=== PATIENT | female | born 1995 | race African-American/Black ===

== ENCOUNTER 2021-09-07 10:18 | Inpatient (IN) | payer BC, OTHER, SELFPAY ==
[2021-09-07] MEDS ORDERED: Magnevist 469MG/ML 20 ML VIAL ONE (10:25)
[2021-09-07] MEDS ORDERED: Ketorolac Tromethamine 30 MG/ML VIAL ONE (10:33)
[2021-09-07] MEDS ORDERED: Metoclopramide HCl 10 MG/2 ML VIAL ONE (10:33)
[2021-09-07 11:07] LABS: #Basophils 0.1 thou/uL (0.0-0.2); #Monocytes 0.3 thou/uL (0.11-0.59); #Neutrophils 4.5 thou/uL (1.40-6.50); %Eosinophils 0.3 % (0.0-10.0); %Lymphocytes 16.6 % (21.0-51.0); %Neutrophils 77.1 % (42.0-75.0); Mean Corpuscular HGB CONC 31.6 g/dL (32.0-36.0); Mean Corpuscular Hemoglobin 25.8 pg (27.0-31.0); Mean Corpuscular Volume 81.7 fL (78.0-98.0); Mean Platelet Volume 7.7 fL (7.4-10.4); Platelet Count 378 thou/uL (130-400); RBC Distribution Width 15.1 % (11.5-14.5); Red Blood Cell (RBC) Count 4.25 mill/uL (4.20-5.40); White Blood Cell (WBC) Count 5.9 thou/uL (4.8-10.8)
[2021-09-07 11:16] LABS: BHCG - Serum Negative (NEGATIVE); Pregs Control Background? CLEAR/WHITE (CLR/WHITE); Pregs Control Bar Appear? YES (CONTROL BAR)
[2021-09-07 11:30] LABS: ALT (SGPT) 8 U/L (8-55); AST (SGOT) 16 U/L (5-34); Albumin 4.1 g/dL (3.5-5.0); Alkaline Phosphatase 69 U/L (40-110); Anion Gap 13 mmol/L (10-20); BUN (Urea Nitrogen) 8 mg/dL (7.0-18.7); Bilirubin, Total 0.7 mg/dL (0.2-1.2); Calc. Creatinine Clearance 0 mL/min (70-130); Calcium 9.6 mg/dL (7.8-10.44); Carbon Dioxide 26 mmol/L (22-29); Chloride 104 mmol/L (98-107); Globulin 3.6 g/dL (2.4-3.5); Glucose 104 mg/dL (70-105); Potassium 3.7 mmol/L (3.5-5.1); Protein, Total 7.7 g/dL (6.0-8.3); Sodium 139 mmol/L (136-145)
[2021-09-07] MEDS ORDERED: Morphine 4 MG/ML VIAL ONE (12:00)
[2021-09-07] MEDS ORDERED: traMADol HCl 50 MG TAB PO PRN (14:32)
[2021-09-07 15:15] LABS: Prothrombin Time 13.1 sec (12.0-14.7)
[2021-09-07] MEDS: HYDROcodone/Acetaminophen 7.5/325 mg Tablet PO PRN ×2 (16:12→22:15)
[2021-09-07] MEDS: Sodium Chloride 0.9% 1,000 ML IV SCH (17:18)
[2021-09-07] MEDS: Ondansetron PF 4 MG/2 ML Vial IVP PRN (17:18)
[2021-09-07 18:02] VITALS: BMI 29.0
[2021-09-07] MEDS: Acetaminophen/Codeine 30-300mg Tablet PO PRN (18:03)
[2021-09-07] MEDS ORDERED: FLU VACC QS2021-22(6MOS UP)/PF 60 MCG/0.5 ML SYRINGE IM ONE (18:45)
[2021-09-07] MEDS: Acetaminophen 325 MG TAB PO PRN (21:23)
[2021-09-07 22:16] LABS: Bacteria/HPF None Seen HPF (None Seen); Bilirubin Negative (Negative); Blood, Urine Negative (Negative); Clarity Clear (Clear); Glucose, Urine (Dipstick) Normal (Negative); Ketone, Urine Negative (Negative); Leukocyte Negative Leu/uL (Negative); Mucous/LPF 2+ LPF (<2+); Nitrite Negative (Negative); Protein, Urine (Dipstick) 50 mg/dL (Neg-Trace); RBC/HPF 0-3 HPF (0-3); Specific Gravity, Urine 1.043 (1.002-1.036); Squamous Epithelial 0-3 HPF (0-3); WBC/HPF 0-3 HPF (0-3)
[2021-09-07 22:18] LABS: Urine Culture Reflex No No
[2021-09-07 22:50] LABS: SARS-CoV-2 NAA Rapid Test Not Detected (NotDetected)
[2021-09-08] MEDS: Acetaminophen/Codeine 30-300mg Tablet PO PRN (02:07)
[2021-09-08] MEDS: Sodium Chloride 0.9% 1,000 ML IV SCH ×3 (06:42→22:01)
[2021-09-08] MEDS ORDERED: Fentanyl 100 MCG/2 ML VIAL ONE ×2 (07:02)
[2021-09-08] MEDS: HYDROcodone/Acetaminophen 7.5/325 mg Tablet PO PRN (07:22)
[2021-09-08] MEDS ORDERED: Thrombin 5000 UNITS/5 ML VIAL ONE (07:27)
[2021-09-08] MEDS ORDERED: Lidocaine 0.5%/Epinephrine 1:200,000 50 ml Vial ONE (07:27)
[2021-09-08] MEDS ORDERED: Rocuronium Bromide 10 MG/ML (10ML VIAL) ONE (09:01)
[2021-09-08] MEDS ORDERED: Dexamethasone 20 MG/5 ML VIAL ONE (09:01)
[2021-09-08] MEDS ORDERED: Ondansetron PF 4 MG/2 ML Vial ONE (09:01)
[2021-09-08] MEDS ORDERED: PROPOFOL 200 MG/20 ML VIAL ONE (09:01)
[2021-09-08] MEDS ORDERED: Lidocaine 1% PF 5 ML VIAL ONE (09:01)
[2021-09-08] MEDS ORDERED: Glycopyrrolate 0.2 MG/ML 5 ML SYRINGE ONE (09:01)
[2021-09-08] MEDS ORDERED: SUGAMMADEX SODIUM 200 MG/2 ML VIAL ONE (10:16)
[2021-09-08 11:42] LABS: Color Of CSF Supernatant COLORLESS (Colorless); Tube # CSF; Unspun CSF Color COLORLESS (Colorless)
[2021-09-08 11:54] LABS: CSF, Glucose 72 mg/dl (40-70); CSF, Protein Less than 10 mg/dL (15-40)
[2021-09-08 12:30] LABS: CSF Source CSF; Clarity Clear (Clear); Tube # *STERILE CONTAINER
[2021-09-08] MEDS: ceFAZolin Sodium/D5W 2 GM in Premix Bag 1 BAG IVPB SCH ×2 (13:21→21:57)
[2021-09-08] MEDS: hydrALAZINE 20 MG/ML VIAL SLOW IVP PRN (13:29)
[2021-09-08] MEDS ORDERED: CEFAZOLIN 2 GM in Sodium Chloride 0.9% 100 ML IVPB SCH (14:00)
[2021-09-09] MEDS: ceFAZolin Sodium/D5W 2 GM in Premix Bag 1 BAG IVPB SCH ×2 (05:33→14:36)
[2021-09-09] MEDS: Sodium Chloride 0.9% 1,000 ML IV SCH (13:05)
[2021-09-09 17:30] LABS: EliA RAS New Method **** NEW METHOD ****; Rheumatoid Factor IgA Antibody 3.1 IU/mL (<14 Negative); Rheumatoid Factor IgM Antibody 1.7 IU/mL (<3.5 Negative)
[2021-09-09] MEDS: CEFAZOLIN 2 GM, Admixture Fee 1 EACH in Sodium Chloride 0.9% 100 ML IVPB SCH (21:12)
[2021-09-09] MEDS ORDERED: Cefepime 2 GM in Sodium Chloride 0.9% 100 ML IVPB SCH (22:00)
[2021-09-10] MEDS: Sodium Chloride 0.9% 1,000 ML IV SCH ×3 (00:22→11:11)
[2021-09-10] MEDS: CEFAZOLIN 2 GM, Admixture Fee 1 EACH in Sodium Chloride 0.9% 100 ML IVPB SCH ×3 (05:23→22:23)
[2021-09-11] MEDS: Sodium Chloride 0.9% 1,000 ML IV SCH ×2 (00:16→22:28)
[2021-09-11] MEDS: CEFAZOLIN 2 GM, Admixture Fee 1 EACH in Sodium Chloride 0.9% 100 ML IVPB SCH ×2 (05:20→14:14)
[2021-09-11] MEDS ORDERED: Bupivacaine 0.25% HCL 30 ML VIAL ONE (11:34)
[2021-09-11] MEDS ORDERED: Lidocaine 1% w/Epinephrine 1:100K 20 ML VIAL ONE (11:34)
[2021-09-11] MEDS ORDERED: Fentanyl 100 MCG/2 ML VIAL ONE ×3 (13:12→15:19)
[2021-09-11] MEDS ORDERED: PROPOFOL 200 MG/20 ML VIAL ONE (13:26)
[2021-09-11] MEDS ORDERED: Rocuronium Bromide 10 MG/ML (10ML VIAL) ONE (13:26)
[2021-09-11] MEDS ORDERED: Dexamethasone 20 MG/5 ML VIAL ONE (13:26)
[2021-09-11] MEDS ORDERED: Lidocaine 1% PF 5 ML VIAL ONE (13:26)
[2021-09-11] MEDS ORDERED: Ondansetron PF 4 MG/2 ML Vial ONE (13:26)
[2021-09-11] MEDS ORDERED: Esmolol 100 MG/10 ML VIAL ONE (13:26)
[2021-09-11] MEDS ORDERED: Glycopyrrolate 0.2 MG/ML 5 ML SYRINGE ONE (13:26)
[2021-09-11] MEDS ORDERED: tiZANidine HCl 4 MG TAB PO PRN (15:06)
[2021-09-11] MEDS ORDERED: Promethazine HCl 25 MG/ML VIAL IM PRN (15:08)
[2021-09-11] MEDS ORDERED: Ondansetron HCl/PF 4 MG/2 ML Vial IVP PRN (15:08)
[2021-09-11] MEDS ORDERED: Promethazine HCl 25 MG/ML VIAL IVPB PRN (15:08)
[2021-09-11] MEDS ORDERED: HYDROmorphone 2 MG/ML VIAL SLOW IVP PRN (15:08)
[2021-09-11] MEDS: ceFAZolin Sodium/D5W 2 GM in Premix Bag 1 BAG IVPB SCH (22:30)
[2021-09-11] MEDS: hydrALAZINE 20 MG/ML VIAL SLOW IVP PRN (22:39)
[2021-09-12] MEDS: Sodium Chloride 0.9% 1,000 ML IV SCH ×3 (04:50→20:34)
[2021-09-12] MEDS: ceFAZolin Sodium/D5W 2 GM in Premix Bag 1 BAG IVPB SCH (05:50)
[2021-09-12] MEDS: Ondansetron PF 4 MG/2 ML Vial IVP PRN (06:19)
[2021-09-12] MEDS: Promethazine HCl 12.5 MG in Sodium Chloride 0.9% 50 ML IVPB PRN (09:16)
[2021-09-12 14:14] LABS: Fungus Stain Final report (.)
[2021-09-12] MEDS: Acetaminophen 325 MG TAB PO PRN (18:03)
[2021-09-13] MEDS: Ondansetron PF 4 MG/2 ML Vial IVP PRN ×2 (01:22→15:28)
[2021-09-13] MEDS: Sodium Chloride 0.9% 1,000 ML IV SCH ×3 (04:36→15:33)
[2021-09-13] MEDS: Promethazine HCl 12.5 MG in Sodium Chloride 0.9% 50 ML IVPB PRN (04:52)
[2021-09-13] MEDS ORDERED: Acetaminophen/Codeine 30-300mg Tablet PO PRN (14:48)
[2021-09-13] MEDS ORDERED: traMADol HCl 50 MG TAB PO PRN (14:48)
[2021-09-14] MEDS: Ondansetron PF 4 MG/2 ML Vial IVP PRN ×2 (00:54→07:11)
[2021-09-14] MEDS: Acetaminophen 325 MG TAB PO PRN (04:58)
[2021-09-14] MEDS: hydrALAZINE 20 MG/ML VIAL SLOW IVP PRN ×3 (08:16→20:12)
[2021-09-14] MEDS: Sodium Chloride 0.9% 1,000 ML IV SCH ×2 (08:17→18:46)
[2021-09-14] MEDS ORDERED: Dexamethasone 4 mg/ml Vial SLOW IVP SCH (08:45)
[2021-09-14 12:12] LABS: Anion Gap 12 mmol/L (10-20); BUN (Urea Nitrogen) 10 mg/dL (7.0-18.7); Calc. Creatinine Clearance 169 mL/min (70-130); Carbon Dioxide 24 mmol/L (22-29); Chloride 103 mmol/L (98-107); Glucose 89 mg/dL (70-105); Potassium 3.4 mmol/L (3.5-5.1); Sodium 136 mmol/L (136-145)
[2021-09-14] MEDS: Dexamethasone 4 MG TAB PO SCH ×2 (16:11→21:34)
[2021-09-15] MEDS: Dexamethasone 4 MG TAB PO SCH ×2 (04:11→09:28)
[2021-09-15] MEDS: Sodium Chloride 0.9% 1,000 ML IV SCH ×3 (09:30→19:49)
[2021-09-15] MEDS: Dexamethasone 1 MG TAB PO SCH ×2 (16:30→21:26)
[2021-09-15 16:41] LABS: SARS-CoV-2 PCR by NAA Not Detected (NotDetected)
[2021-09-16] MEDS: Dexamethasone 1 MG TAB PO SCH ×4 (03:37→21:29)
[2021-09-16] MEDS: Sodium Chloride 0.9% 1,000 ML IV SCH ×2 (05:23→21:20)
[2021-09-17] MEDS: Dexamethasone 1 MG TAB PO SCH ×2 (03:39→08:50)
[2021-09-17] MEDS: Acetaminophen 325 MG TAB PO PRN (06:09)
[2021-09-17] MEDS: Sodium Chloride 0.9% 1,000 ML IV SCH (08:48)
[2021-09-17 12:04] VITALS: BP 120/74; TEMP 97.9
[2021-09-17] MEDS ORDERED: Dexamethasone 1 MG TAB PO SCH (16:00)
== END 2021-09-17 14:30 | disposition home or self-care (01) | DRG 26 ==
LOC: ERS 10:18 → SURG B 14:19 → CCU 09-08 11:36 → SJJU 09-11 17:21
PROVIDERS: ADMIT Surgery; ATTEND Surgery
PROC: 009600Z Drainage of Cerebral Ventricle with Drainage Device, Open Approach (ICD-10-PCS; principal; 2021-09-08)
PROC: 00163J6 Bypass Cerebral Ventricle to Peritoneal Cavity with Synthetic Substitute, Percutaneous Approach (ICD-10-PCS; 2021-09-11)
PROC: 0WJG4ZZ Inspection of Peritoneal Cavity, Percutaneous Endoscopic Approach (ICD-10-PCS; 2021-09-11)
DX: G91.0 Communicating hydrocephalus (principal); G96.08 Other cranial cerebrospinal fluid leak; Z20.822 Contact with and (suspected) exposure to COVID-19; J45.909 Unspecified asthma, uncomplicated; G93.2 Benign intracranial hypertension; Z28.21 Immunization not carried out because of patient refusal
CPT/HCPCS: 36415; 70450; 70553; 80048; 80053; 81001; 82164; 82945; 83520; 84157; 84703; 85025; 85610; 85652; 86140; 86612; 86635; 86698; 87040; 87070; 87102; 87205; 87206; 88112; 89051; 93970; 96365; 96375; A9579; C1729; J0360; J0690; J1100; J1885; J2001; J2270; J2405; J2550; J2704; J2710; J2765; J3010; J3370; J3490; J7050; J8540; L8501; S0020; U0002; U0003; U0005

== ENCOUNTER 2021-11-08 14:16 | Outpatient (CLI) | payer SELFPAY | END 2021-11-08 14:17 | disposition home or self-care (01) | LOC: CT 14:16 | PROVIDERS: ATTEND Surgery | DX: G91.9 Hydrocephalus, unspecified (principal); G93.89 Other specified disorders of brain; Z98.2 Presence of cerebrospinal fluid drainage device | CPT/HCPCS: 70450 ==